=== PATIENT | female | born 1950 | race Caucasian/White ===

== ENCOUNTER → 2021-11-18 | Outpatient (CLI) | payer MEDICARE ==
[~2021-11-18] MED LIST: HYDROCODON-ACE1 EAC4 PO; LEVOFLOXACIN500 MG PO; VITAMIN D310 MC4 PO
[2021-11-18 11:23] LABS: RED BLOOD COUNT 4.85 M/UL (4.00-5.10); WHITE BLOOD COUNT 6.9 K/UL (4.5-11.0)
[2021-11-18 11:55] LABS: BUN/CREATININE RATIO 18 (0-10)
== END ==
LOC: LAB 10:58
PROVIDERS: Internal Medicine Cardiovascular Disease
DX: Z45.09 Encounter for adjustment and management of other cardiac device (principal); Z87.898 Personal history of other specified conditions; I49.5 Sick sinus syndrome
CPT/HCPCS: 36415; 71046; 80048; 85025

== ENCOUNTER → 2021-11-20 | Outpatient (CLI) | payer MEDICARE | LOC: CATH 05:48 | DX: Z45.09 Encounter for adjustment and management of other cardiac device (principal); I49.5 Sick sinus syndrome; Z90.710 Acquired absence of both cervix and uterus; Z88.8 Allergy status to other drugs, medicaments and biological substances; Z88.5 Allergy status to narcotic agent; Z88.0 Allergy status to penicillin; Z88.2 Allergy status to sulfonamides; Z91.013 Allergy to seafood; Z82.3 Family history of stroke; Z82.49 Family history of ischemic heart disease and other diseases of the circulatory system; Z83.3 Family history of diabetes mellitus | CPT/HCPCS: 99152; 99153; J2250; J3010; J3370; J7040; J7050 ==